=== PATIENT | male | born 1950 | race Caucasian/White ===

== ENCOUNTER 2021-01-14 09:48 | Day surgery (SDC) | payer OTHER ==
[2021-01-14] MEDS ORDERED: Ringers Lactate 1,000 ML IV ONE (10:29)
[2021-01-14] MEDS ORDERED: CEFAZOLIN/SWI 2gm 2 GM/20 ML SYR ONE (10:29)
[2021-01-14] MEDS ORDERED: CELECOXIB 100 MG CAPSULE ONE (11:59)
[2021-01-14] MEDS ORDERED: ACETAMINOPHEN 500 MG TAB ONE (12:23)
[2021-01-14] MEDS ORDERED: propofoL 200 MG/20 ML VIAL IV ONE (12:28)
[2021-01-14] MEDS ORDERED: FENTANYL CITR 100 MCG/2 ML ONE (12:28)
[2021-01-14] MEDS ORDERED: MIDAZOLAM HCL 2 MG/2 ML INJ ONE (12:30)
[2021-01-14] MEDS ORDERED: LIDOCAINE 2% MPF 5 ML VIAL ONE ×2 (12:30→12:32)
[2021-01-14] MEDS ORDERED: BUPIVACAINE 0.25% PF 30 ML VIAL ONE (12:51)
[2021-01-14] MEDS ORDERED: EPHEDRINE SULF 50 MG/ML VIAL ONE (12:59)
--- NOTE | 2021-01-14 12:59 | P.OP ---
Preoperative diagnosis: RIGHT upper back sebaceous cyst Postoperative diagnosis: RIGHT upper back sebaceous cyst Primary procedure: Excisoin of RIGHT upper back sebaceous cyst Anesthesia: GETA + Local Estimated blood loss: <2cc Specimen: sebaceous material and cyst Findings: ~ 5cm round sebaceous cyst Complications: None Transferred to: Recovery Room Condition: Good
[2021-01-14] MEDS ORDERED: ONDANSETRON 4 MG/2 ML VIAL ONE (13:05)
--- NOTE | 2021-01-14 13:17 | OP ---
Date of Procedure: 01/14/2021 Surgeon: Sumeet Tirado MD, Preoperative Diagnosis: Right upper back sebaceous cyst. Postoperative Diagnosis: Right upper back sebaceous cyst. Procedure Performed: Excision of right upper back sebaceous cyst. Anesthesia: General endotracheal plus local. Estimated Blood Loss: Less than 2 mL. Specimen: Sebaceous cyst material. Findings: A 5 cm round sebaceous cyst. Complications: None. Disposition: The patient was transferred recovery room in good condition. Procedure In Detail: After informed consent was obtained, the patient was brought to the operating r oom, prepped and draped in the usual sterile fashion. After adequate anesthesia was achieved, I made a linear incision over a right upper back area of sebaceous material and the cystic structure down t o subcutaneous tissues. I then used a combination of sharp and blunt dissection with electrocautery to circumferentially remove a previously infected sebaceous cyst cavity and sent off for pathologic e xamination. The cavity was then irrigated copiously. Hemostasis was achieved with electrocautery. The wound was then irrigated and packed once again with half-inch iodoform packing and a sterile dres sing was placed over top. The patient tolerated the procedure well without evidence of complication and transferred to PACU in good condition. All counts were correct at the end of the case. MASSIEL/TIMOTHYL Voice ID: [id number] Report ID: [id number]
[2021-01-14 15:46] VITALS: BP 105/54; TEMP 97; O2SAT 98
== END 2021-01-14 14:50 | disposition home or self-care (01) ==
LOC: OR 09:48
PROVIDERS: ATTEND Surgery
PROC: 0JB70ZZ Excision of Back Subcutaneous Tissue and Fascia, Open Approach (ICD-10-PCS; principal; 2021-01-14 11:15)
DX: L72.0 Epidermal cyst (principal)
CPT/HCPCS: 36415; 84132; 88304; 11406; J2704; J2250; J3010; J0690; J7120; J2405